=== PATIENT | male | born 1970 ===

== ENCOUNTER → 2021-04-13 | Day surgery (SDC) | payer BC ==
[~2021-04-13] VITALS: Ht 182.9 cm; Wt 99.7 kg
[~2021-04-13] MED LIST: BUSPAR DIVIDOSE15 MG; ZYRTEC ALLERGY10 MG PO
[2021-04-13 08:43] VITALS: BP 138/93; PULSE 84; TEMP 99.4
[2021-04-13 10:10] VITALS: BP 108/78; PULSE 70; TEMP 97.8
[2021-04-13 10:25] VITALS: BP 111/77; PULSE 71
[2021-04-13 10:40] VITALS: BP 120/73; PULSE 68
--- NOTE | 2021-04-13 10:58 | NUR ---
PT RETURNED FROM ENDO PROCEDURE PER CART. PT ALERT AND ORIENTATED. DENIES NAUSEA AND VOMITING AT THIS TIME. VSS AND AFEBRILE. LUNGS CLEAR THROUGHOUT, HRR, BOWEL SOUNDS PRESENT AND ACTIVE. #20 IN RIGHT WRIST IS PATENT WITH IVF FLOWING KVO. PT REQUESTS CHOCOLATE MUFFIN AND SPRITE. CALL LIGHT IN REACH. WILL CONT MONITOR PROGRESS.
--- NOTE | 2021-04-13 11:04 | NUR ---
PT TOLERATING FOOD AND FLUIDS WITHOUT DIFFICULTY. IVF WERE DISCONECTED. DENIES PAIN AT THIS TIME. WILL CONT TO MONITOR.
--- NOTE | 2021-04-13 11:08 | NUR ---
PT CONTINUES TO DENY PAIN, NAUSEA OR VOMITING. IV WAS DC'D TO RIGHT WRIST. DISMISSAL INSTRUCTIONS WERE GIVEN, PT VOICES UNDERSTANDING. PT WAS DISMISSED THROUGH THE PATIENT ENTRANCE, SISTER DRIVING PT HOME.
== END ==
LOC: SDCO 08:08
DX: Z12.11 Encounter for screening for malignant neoplasm of colon (principal); D12.2 Benign neoplasm of ascending colon; D12.5 Benign neoplasm of sigmoid colon; K62.89 Other specified diseases of anus and rectum; Z20.822 Contact with and (suspected) exposure to COVID-19
CPT/HCPCS: J2704; J7120